=== PATIENT | female | born 1965 | race Caucasian/White ===

== ENCOUNTER → 2017-10-10 | Day surgery (SDC) | payer BC ==
[2017-10-09 15:35] VITALS: Ht 175.3 cm; Wt 59.1 kg
[~2017-10-10] VITALS: Ht 175.3 cm; Wt 59.1 kg
[~2017-10-10] MED LIST: DVN/160 PO; FOLI1TAB8 PO; IBAN150T PO; LEVE500T13 PO; LEVO75TA PO; LIDOCAINE HCL 2% 2 ML VIAL (20MG/ML) ONE; MYCO250C26 PO; PHENYLEPHRINE 100MCG/ML 5ML SYR ONE; PRAV20TA PO; PROPOFOL IV EMULSION 10 MG/ML 20 ML VIAL IV ONE; SIRO1TAB PO
--- NOTE | 2017-10-10 11:10 | Endo History and Physical ---
History & Physical Date of Service: Oct 10, 2017. Chief Complaint: Referring Physician: History of Present Illness chronic diarrhea Past Surgical History Hx Cardiac Surgery: Yes (MULT. HEARTH CATHS, HEART TRANSPLANT) Hx Internal Defibrillator: No Hx Pacemaker: No Hx Abdominal Surgery: No Hx of Implantable Prosthesis: No Hx Post-Op Nausea and Vomiting: No Hx Cancer Surgery: No Hx Thoracic Surgery: No Hx Orthopedic: Yes (RT/LEFT KNEE ARTHROSCOPY) Hx Urinary Tract Surgery: No Family History None Social History Hx Substance Use: No Hx Alcohol Use: Yes (OCCASIONALLY) Allergies Coded Allergies: Amoxicillin (Verified Allergy, Unknown, UPSET STOMACH, 10/09/17) Clavulanic Acid (Verified Allergy, Unknown, UPSET STOMACH, 10/09/17) Codeine (Verified Allergy, Unknown, "STRANGE FEELING", 10/09/17) Current Medications Reported Home Medications Medications Dose Route/Sig Max Daily Dose Days Date Category Boniva (Ibandronate Sodium) 150 Mg Tab 150 Mg PO MONTHLY 10/09/17 Reported Folvite (Folic Acid) 1 Mg Tab 1 Mg PO QAM 10/09/17 Reported Pravachol (Pravastatin Sodium) 20 Mg Tab 20 Mg PO HS 10/09/17 Reported Diovan (Valsartan) 160 Mg Tab 160 Mg PO QAM 10/09/17 Reported Synthroid (Levothyroxine Sodium) 75 Mcg Tab 75 Mcg PO HS 10/09/17 Reported Sirolimus 2 Mg Tab 1 Tab PO HS 10/09/17 Reported Keppra (Levetiracetam) 500 Mg Tab 500 Mg PO BID 10/09/17 Reported Cellcept (Mycophenolate Mofetil) 250 Mg Cap 1 Cap PO BID 10/09/17 Reported Vital Signs Weight (Kilograms): 59.09 Height (Feet): 5 Height (Inches): 9 Physical Exam General Appearance: no apparent distress Respiratory/Chest: Auscultation: breath sounds normal Cardiovascular: Heart Auscultation: RRR Abdomen: Inspection & Palpation: soft Liver: non-tender Assessment and Plan stable for colonoscopy
--- NOTE | 2017-10-10 11:57 | Discharge Instructions ---
Endoscopy Patient Instructions Date / Procedure(s) Performed Oct 10, 2017. Colonoscopy Allergy Information Coded Allergies: Amoxicillin (Verified Allergy, Unknown, UPSET STOMACH, 10/09/17) Clavulanic Acid (Verified Allergy, Unknown, UPSET STOMACH, 10/09/17) Codeine (Verified Allergy, Unknown, "STRANGE FEELING", 10/09/17) Discharge Date / Findings Oct 10, 2017. Normal colon. Biopsies obtained. Provider Instructions Activity Restrictions - No exercising or heavy lifting for 24 hours. - Do not drink alcohol the day of the procedure. - Do not drive a car or operate machinery until the day after the procedure. - Do not make any important decisions or sign important papers in 24 hours after the procedure. Following Day: - Return to full activity which may include returning to work/school. Diet Start your diet with liquids and light foods (jello, soup, juice, toast). Then eat your usual diet if not nauseated. Treatment For Common After Affects For mild abdominal pain, bloating, or excessive gas: - Rest - Eat lightly - Lie on right side Follow-Up Information Follow-up with Dr. Elmer Augustine as scheduled Anesthesia Information What You Should Know You have had a procedure that required some medicine to reduce anxiety and discomfort. This treatment is called moderate sedation. After receiving the treatment, you may be sleepy, but you will be able to breathe on your own. The effects of the treatment may last for several hours. Follow these instructions along with Activity/Diet recommendations noted above: * Do NOT do anything where dizziness or clumsiness would be dangerous. * Rest quietly at home today, then you can be up and about tomorrow. * Have a responsible person stay with you the rest of today. * You may have had an I.V. today. If so, you may take the dressing off later today. Recommendations Call your doctor if: * Trouble breathing * Continuous vomiting for more than 24 hours * Temperature above 101 degrees * Severe abdominal pain or bloating * Pain not relieved by pain medicine ordered * There is increased drainage or redness from any incision * A large amount of rectal bleeding greater than 2-3 tablespoons. (If you had a polyp/s removed or have hemorrhoids, a small amount of blood - from the rectum is to be expected.) * You have any unanswered questions or concerns. IN THE EVENT OF A SERIOUS EMERGENCY, GO TO THE NEAREST EMERGENCY ROOM Your discharge instructions were prepared by provider Kev Hopkins. Patient Instructions Signature Page Estherirish Jordan Patient (or Guardian) Signature/Date: I have read and understand the instructions given to me by my caregivers. Caregiver/RN/Doctor Signature/Date: The above-named patient and/or guardian has received patient instructions on this date. + Original Patient Signature Page (only) stays with chart. Please make copy for patient.
--- NOTE | 2017-10-10 12:06 | GI REPORT ---
Procedure Date: 10/10/2017 11:08 AM Procedure: Colonoscopy Indications: Chronic diarrhea Medicines: See the Anesthesia note for documentation of the administered medications Complications: No immediate complications. Estimated Blood Loss: Estimated blood loss was minimal. Procedure: Pre-Anesthesia Assessment: - Prior to the procedure, a History and Physical was performed, and patient medications, allergies and sensitivities were reviewed. The patient's tolerance of previous anesthesia was reviewed. - The risks and benefits of the procedure and the sedation options and risks were discussed with the patient. All questions were answered and informed consent was obtained. - Patient identification and proposed procedure were verified prior to the procedure by the physician and the nurse. The procedure was verified in the pre-procedure area. - Pre-procedure physical examination revealed no contraindications to sedation. - After reviewing the risks and benefits, the patient was deemed in satisfactory condition to undergo the procedure. After I obtained informed consent, the scope was passed under direct vision. Throughout the procedure, the patient's blood pressure, pulse, and oxygen saturations were monitored continuously. The scope was introduced through the anus and advanced to the cecum, identified by appendiceal orifice and ileocecal valve. The colonoscopy was performed without difficulty. The patient tolerated the procedure well. The quality of the bowel preparation was good. Findings: The perianal and digital rectal examinations were normal. The colon (entire examined portion) appeared normal. Biopsies for histology were taken with a cold forceps from the entire colon for evaluation of microscopic colitis. Verification of patient identification for the specimen was done by the physician and nurse using the patient's name and medical record number. Estimated blood loss was minimal. No additional abnormalities were found on retroflexion. Impression: - The entire examined colon is normal. Biopsied. - No evidence of IBD. Recommendation: - Await pathology results. - Discharge patient to home. Kev Hopkins M.D. Kev Hopkins MD 10/10/2017 12:05:38 PM This report has been signed electronically. Note Initiated On: 10/10/2017 11:08 AM I attest to the content of the Intraoperative Record and orders documented therein, exceptions below
--- NOTE | 2017-10-10 12:14 | Anesthesiology Progress Note ---
Anesthesia Post Op Note Date & Time Oct 10, 2017 at 12:14 Vital Signs Pain Intensity: 0 Vital Signs Past 12 Hours Date Time Temp Pulse Resp B/P (MAP) Pulse Ox O2 Delivery O2 Flow Rate FiO2 10/10/17 12:02 71 20 89/43 (58) 98 Room Air 10/10/17 11:13 36.5 88 20 104/80 (88) 98 Room Air Notes Mental Status: alert / awake / arousable, participated in evaluation Pt Amnestic to Procedure: Yes Nausea / Vomiting: adequately controlled Pain: adequately controlled Airway Patency, RR, SpO2: stable & adequate BP & HR: stable & adequate Hydration State: stable & adequate Anesthetic Complications: no major complications apparent
[2017-10-10 12:35] VITALS: BP 112/71; PULSE 68; O2SAT 100
== END | disposition home or self-care (01) ==
LOC: C.GI 10:52
PROVIDERS: ATTEND Internal Medicine Gastroenterology
DX: R19.7 Diarrhea, unspecified (principal); Z88.1 Allergy status to other antibiotic agents; Z88.5 Allergy status to narcotic agent; Z79.899 Other long term (current) drug therapy